=== PATIENT | male | born 1955 | race Caucasian/White ===

== ENCOUNTER 2016-02-28 17:20 | Emergency (ER) | payer BC ==
[2016-02-28] MEDS ORDERED: CEFAZOLIN 1,000 MG VIAL ONE (18:01)
[2016-02-28] MEDS ORDERED: SODIUM CHLORIDE 0.9% 100 ML IV ONE (18:02)
[2016-02-28] MEDS ORDERED: TDaP 0.5 ML VIAL IM.VACC ONE (18:02)
== END 2016-02-28 19:32 | disposition other institution (70) ==
LOC: ER 17:20
DX: S62.607B Fracture of unspecified phalanx of left little finger, initial encounter for open fracture (principal)
CPT/HCPCS: 36415; 85025; 90471; 96365